=== PATIENT | male | born 1945 | race Caucasian/White ===

== ENCOUNTER → 2021-01-17 | Outpatient (CLI) | payer MEDICARE, OTHER ==
--- NOTE | 2021-01-17 15:22 | Diagnostic Imaging Report ---
PROCEDURE: MR imaging left lower extremity without contrast. TECHNIQUE: Multiplanar, multisequence non contrast enhanced MR imaging of the left lower extremity was accomplished. INDICATION: Ulcer of the left foot. History of diabetes. COMPARISON: None. FINDINGS: No acute fracture is seen in the left forefoot. There is mild hallux valgus. There does appear to be an old fracture of the 5th toe proximal phalanx which appears nonunited. No cortical erosions are seen. There are small ulcerations at the left great toe soft tissues. There is no evidence of underlying osteomyelitis. No soft tissue fluid collections are seen on this noncontrast exam. There is mild generalized muscular atrophy which is likely neurogenic. There is mild dorsal subcutaneous edema which is nonspecific. The flexor and extensor tendons appear intact. IMPRESSION: 1. Soft tissue ulcerations of the left great toe without evidence of underlying osteomyelitis. No fluid collection is seen. 2. Chronic appearing nonunited fracture of the 5th toe proximal phalanx. Please correlate with prior imaging or radiographs. Dictated by: Dictated on workstation # [id number]
== END ==
LOC: RAD 11:55
PROVIDERS: ATTEND Podiatrist Foot & Ankle Surgery
DX: S92.912A Unspecified fracture of left toe(s), initial encounter for closed fracture (principal); E11.621 Type 2 diabetes mellitus with foot ulcer; X58.XXXA Exposure to other specified factors, initial encounter